=== PATIENT | female | born 2000 | race Caucasian/White ===

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

== ENCOUNTER 2018-04-09 07:26 | Emergency (ER) | payer BC ==
[2018-04-09 07:46] VITALS: BP 126/70
--- NOTE | 2018-04-09 08:06 | UC ---
UC General HPI - HPI Summary HPI Summary: Sore throat since 03/28. Was put on zpack for sore throat and showed no improvement. Did have some congestion, but not a lot. Not tested for strep. Reviewed above RN note. Started with sinus pressure and congestion and drainage , this is better, but + sore throat with swallow. Able to swallow, feels like something in back of throat. No rash. + GI upset, no melena. No urinary issues. On BCP, periods normal. + ear discomfort. Minimal cough. - History of Current Complaint Chief Complaint: UCGeneralIllness Stated Complaint: ST Time Seen by Provider: 04/09/18 08:06 Hx Obtained From: Patient Hx Last Menstrual Period: 03/17/18 Pain Intensity: 6 - Allergy/Home Medications Allergies/Adverse Reactions: Allergies Allergy/AdvReac Type Severity Reaction Status Date / Time amoxicillin Allergy Rash And Verified 04/09/18 07:41 Itching erythromycin base Allergy Rash Verified 04/09/18 07:41 Sulfa (Sulfonamide Allergy Rash Verified 04/09/18 07:41 Antibiotics) Home Medications: Home Medications Levonorgestrel-Ethin Estradiol [Kurvelo Tablet] 1 each PO DAILY 04/09/18 [ History Confirmed 04/09/18] PMH/Surg Hx/FS Hx/Imm Hx Previously Healthy: Yes - hx pcos - Surgical History Surgical History: Yes Surgery Procedure, Year, and Place: TONSILLECTOMY 2010 - Family History Known Family History: Positive: Cardiac Disease - Social History Alcohol Use: None Substance Use Type: None Smoking Status (MU): Never Smoked Tobacco Have You Smoked in the Last Year: No - Immunization History Most Recent Influenza Vaccination: unsure Vaccination Up to Date: Yes Review of Systems All Other Systems Reviewed And Are Negative: Yes Constitutional: Positive: Other - see hpi Skin: Positive: Other - see hpisee hpi Eyes: Positive: Other - see hpi ENT: Positive: Other Respiratory: Positive: Other - see hpisee hpi Cardiovascular: Positive: Other - see hpisee hpi Gastrointestinal: Positive: Other - see hpi Genitourinary: Positive: Other - see hpisee hpi Motor: Positive: Other - see hpi Neurovascular: Positive: Other Musculoskeletal: Positive: Other: - see hpi Neurological: Positive: Other - see hpi Psychological: Positive: Other - see hpi Is Patient Immunocompromised?: No Physical Exam Triage Information Reviewed: Yes Appearance: Well-Nourished - sitting up, conversing easily and appropriately. Looks tired, but nad. Vital Signs: Initial Vital Signs Temp 97.9 F 04/09/18 07:43 Pulse 77 04/09/18 07:43 Resp 16 04/09/18 07:43 BP 126/70 04/09/18 07:43 Pulse Ox 100 04/09/18 07:43 Vital Signs Reviewed: Yes Eye Exam: Normal ENT: Positive: Nasal congestion - previous nasal congestion, minimal now, Other - R TM dull, dark, rtxd (not red). L TM marroquin rtxd No tonsils Posterior pharynx - scattered redness,including + apprx 2cm x 2.5 area of redness. No airway obstruction. Non-fluctuant. Tongue not elevated. No aldo sores or exudates. No stridor. Neck exam: Normal Neck: Positive: Supple, Nontender, No Lymphadenopathy - no obvious lymphadenopathy Respiratory Exam: Normal Respiratory: Positive: Chest non-tender, Lungs clear, Normal breath sounds, No respiratory distress Cardiovascular Exam: Normal Cardiovascular: Positive: RRR, No Murmur, Pulses Normal, Brisk Capillary Refill Abdominal Exam: Normal Abdomen Description: Positive: Nontender - no cvat Bowel Sounds: Positive: Present - slight hyperactive Musculoskeletal Exam: Normal - grossly normal, gait steady Neurological Exam: Normal - grossly nonfocal Psychological Exam: Normal - conversing easily and appropriately Skin Exam: Normal - no visible or reported rash Course/Dx - Course Course Of Treatment: Reviewed coa / tx plan. Completed azithromycin last week. RST today negative. Does not know if +/- hx mononucleosis. S /sx c/w viral etiology. However, recommend blood work, see below. cbc, cmp, crp, mono. Harriet carefully considered the above. She d/w her mom via telephone. She declines blood work. Will f/u PCP. Declines work note. Questions as posed answered to the best of my ability. Encourage f/u PCP in the nexgt 1-2 days. ( today is Sunday). Seek medical attention if worse / new problems in the meantime. Drink plenty of fluids, avoid astringents. - Diagnoses Provider Diagnosis: Pharyngitis Discharge - Sign-Out/Discharge Documenting (check all that apply): Patient Departure All imaging exams completed and their final reports reviewed: No Studies - Discharge Plan Condition: Stable Disposition: HOME Patient Education Materials: Pharyngitis (ED) Referrals: Marguerite Vann NP [Primary Care Provider] - Additional Instructions: Follow up with your primary care provider in the next 1-2 days. Likely viral etiology. Seek medical attention if worse / new problems in the meantime. Drink plenty of fluids, avoid astringents. Throat lozenges as needed, per packaging instructions. Do not take more than the recommended amount on packaging. - Billing Disposition and Condition Condition: STABLE Disposition: Home
== END 2018-04-09 08:40 | disposition home or self-care (01) ==
LOC: UCCORT 07:26
DX: J02.9 Acute pharyngitis, unspecified (principal); Z88.0 Allergy status to penicillin; Z88.1 Allergy status to other antibiotic agents
CPT/HCPCS: 87651; 99211; G0463

== ENCOUNTER 2018-05-25 08:04 | Emergency (ER) | payer BC ==
[2018-05-25 08:22] VITALS: BP 125/75
--- NOTE | 2018-05-25 12:48 | UC ---
Skin Complaint HPI - HPI Summary HPI Summary: Patient has two insect bites one on her chin and one on the left hand. she states they are itchy ans the one on her hand is swollen. - History of Current Complaint Chief Complaint: UCSkin Time Seen by Provider: 05/25/18 08:16 Stated Complaint: RIGHT HAND/CHIN SKIN COMPLAINT Hx Obtained From: Patient Hx Last Menstrual Period: 04/21/18 ?: No Onset/Duration: Sudden Onset, Lasting Days Skin Exposure Onset/Duration: Minutes Ago, Days Ago Onset Severity: Mild Current Severity: Mild Pain Intensity: 3 Location: Discrete Character: Redness, Raised, Painful Aggravating Factor(s): Touch Alleviating Factor(s): Nothing Related History: Insect Bite/Sting - Allergy/Home Medications Allergies/Adverse Reactions: Allergies Allergy/AdvReac Type Severity Reaction Status Date / Time amoxicillin Allergy Rash And Verified 05/25/18 08:16 Itching erythromycin base Allergy Rash Verified 05/25/18 08:16 Sulfa (Sulfonamide Allergy Rash Verified 05/25/18 08:16 Antibiotics) Home Medications: Home Medications diphenhydrAMINE HCl [Benadryl Allergy 25 MG CAP] 25 mg PO ONCE PRN 05/25/18 [ History Confirmed 05/25/18] PMH/Surg Hx/FS Hx/Imm Hx Previously Healthy: Yes - Surgical History Surgical History: Yes Surgery Procedure, Year, and Place: TONSILLECTOMY 2010 - Family History Known Family History: Positive: Cardiac Disease - Social History Alcohol Use: None Substance Use Type: None Smoking Status (MU): Never Smoked Tobacco Have You Smoked in the Last Year: No - Immunization History Most Recent Influenza Vaccination: unsure Vaccination Up to Date: Yes Review of Systems All Other Systems Reviewed And Are Negative: Yes Constitutional: Positive: Negative Skin: Positive: Other - bites Eyes: Positive: Negative ENT: Positive: Negative Respiratory: Positive: Negative Cardiovascular: Positive: Negative Gastrointestinal: Positive: Negative Genitourinary: Positive: Negative Motor: Positive: Negative Neurovascular: Positive: Negative Musculoskeletal: Positive: Negative Neurological: Positive: Negative Psychological: Positive: Negative Is Patient Immunocompromised?: No Physical Exam Triage Information Reviewed: Yes Appearance: Well-Appearing, Well-Nourished, Pain Distress Vital Signs: Initial Vital Signs Temp 97.4 F 05/25/18 08:17 Pulse 75 05/25/18 08:17 Resp 15 05/25/18 08:17 BP 125/75 05/25/18 08:17 Pulse Ox 100 05/25/18 08:17 Vital Signs Reviewed: Yes Eye Exam: Normal ENT Exam: Normal Dental Exam: Normal Neck exam: Normal Respiratory Exam: Normal Respiratory: Positive: Chest non-tender, Lungs clear, Normal breath sounds Cardiovascular Exam: Normal Cardiovascular: Positive: RRR, No Murmur, Pulses Normal Abdominal Exam: Normal Musculoskeletal Exam: Normal Neurological Exam: Normal Psychological Exam: Normal Skin: Positive: Other - 2 bites one on chin and one on the opsteriro right hand that is swollen and raised. Course/Dx - Course Course Of Treatment: hx obtained, exam performed ,meds reviewed, skin area looks like a insect bite reaction - Differential Diagnoses - Skin Complaint Differential Diagnoses: Abscess, Cellulitis, Eczema, Urticaria - Diagnoses Provider Diagnosis: Allergic reaction to insect bite Discharge - Sign-Out/Discharge Documenting (check all that apply): Patient Departure All imaging exams completed and their final reports reviewed: No Studies - Discharge Plan Condition: Stable Disposition: HOME Patient Education Materials: Insect Bite or Sting (ED) Referrals: Marguerite Vann NP [Primary Care Provider] - Additional Instructions: 1. take the medication as prescribed. 2. soak hand in warm water 2-3 times a day to help swelling dissipate 3. Take a daily Zyrtec for the next 2 weeks - Billing Disposition and Condition Condition: STABLE Disposition: Home
== END 2018-05-25 08:37 | disposition home or self-care (01) ==
LOC: UCCORT 08:04
DX: T63.481A Toxic effect of venom of other arthropod, accidental (unintentional), initial encounter (principal); M79.89 Other specified soft tissue disorders; Y92.9 Unspecified place or not applicable; Z88.0 Allergy status to penicillin; Z88.1 Allergy status to other antibiotic agents
CPT/HCPCS: 99212; G0463

== ENCOUNTER 2018-11-02 16:53 | Emergency (ER) | payer MEDICAID, OTHER ==
[2018-11-02 18:10] VITALS: BP 117/67
[2018-11-02] MEDS ORDERED: Tetan/Diph/Pertus SYR(Tdap)* 0.5 ML SYR(BOOSTRIX) use SYR IM ONE (18:20)
[2018-11-02] MEDS ORDERED: Lidocaine 4% TOPICAL* 50 ML TOP.SOLN TOPICAL ONE (18:20)
--- NOTE | 2018-11-02 18:21 | UC ---
Lower Extremity/Ankle HPI - HPI Summary HPI Summary: Thinks she may have a splinter in bottom of left foot - History of Current Complaint Chief Complaint: UCForeignBody Stated Complaint: LEFT FOOT CONCERN ( SPLINTER) Time Seen by Provider: 11/02/18 18:16 Hx Obtained From: Patient Hx Last Menstrual Period: 10/26/18 ?: No Onset/Duration: Sudden Onset, Lasting Hours Pain Intensity: 6 Pain Scale Used: 0-10 Numeric Aggravating Factor(s): Standing, Ambulation Able to Bear Weight: Yes - Allergies/Home Medications Allergies/Adverse Reactions: Allergies Allergy/AdvReac Type Severity Reaction Status Date / Time amoxicillin Allergy Rash And Verified 11/02/18 18:10 Itching erythromycin base Allergy Rash Verified 11/02/18 18:10 Sulfa (Sulfonamide Allergy Rash Verified 11/02/18 18:10 Antibiotics) Home Medications: Home Medications NK [No Home Medications Reported] 11/02/18 [History Confirmed 11/02/18] PMH/Surg Hx/FS Hx/Imm Hx Previously Healthy: Yes - Surgical History Surgical History: Yes Surgery Procedure, Year, and Place: TONSILLECTOMY 2010 - Family History Known Family History: Positive: Cardiac Disease - Social History Occupation: Employed Full-time Lives: With Family Alcohol Use: None Substance Use Type: None Smoking Status (MU): Never Smoked Tobacco Have You Smoked in the Last Year: No - Immunization History Most Recent Influenza Vaccination: unsure Vaccination Up to Date: Yes Review of Systems All Other Systems Reviewed And Are Negative: Yes Constitutional: Positive: Negative Skin: Positive: Other - small pw bottom of left foot from sliver--- Eyes: Positive: Negative ENT: Positive: Negative Respiratory: Positive: Negative Cardiovascular: Positive: Negative Gastrointestinal: Positive: Negative Genitourinary: Positive: Negative Motor: Positive: Negative Neurovascular: Positive: Negative Musculoskeletal: Positive: Negative Neurological: Positive: Negative Psychological: Positive: Negative Is Patient Immunocompromised?: Yes Physical Exam Triage Information Reviewed: Yes Appearance: Well-Appearing, No Pain Distress, Well-Nourished Vital Signs: Initial Vital Signs Temp 98.5 F 11/02/18 18:06 Pulse 74 11/02/18 18:06 Resp 14 11/02/18 18:06 BP 117/67 11/02/18 18:06 Pulse Ox 100 11/02/18 18:06 Vital Signs Reviewed: Yes Eye Exam: Normal Eyes: Positive: Conjunctiva Clear ENT Exam: Normal ENT: Positive: Normal ENT inspection, Hearing grossly normal. Negative: Trismus , Muffled voice, Hoarse voice Dental Exam: Normal Neck exam: Normal Neck: Positive: Supple, Nontender Respiratory Exam: Normal Respiratory: Positive: Chest non-tender, No respiratory distress, No accessory muscle use Cardiovascular Exam: Normal Cardiovascular: Positive: RRR, Pulses Normal, Brisk Capillary Refill Musculoskeletal Exam: Normal Musculoskeletal: Positive: Strength Intact, ROM Intact Neurological Exam: Normal Neurological: Positive: Alert, Muscle Tone Normal Psychological Exam: Normal Skin: Positive: Other - pw bottom of left foot---no fb noted on inspection Diagnostics - Radiology No standard instances Radiology Interpretation Completed By: ED Physician - no [email or web address] noted Lower Extremity Course/Dx - Course Course Of Treatment: would was anexamined closer--small pience of debris removed---patient feels fb remains---will apply dressing up date tetanus and follow with orthopedic MD - Differential Dx/Diagnosis Provider Diagnosis: Tetanus-diphtheria vaccination administered at current visit, Foreign body in left foot Discharge - Sign-Out/Discharge Documenting (check all that apply): Patient Departure All imaging exams completed and their final reports reviewed: No - Discharge Plan Condition: Stable Disposition: HOME Patient Education Materials: Diphtheria/Pertussis/Tetanus Vaccine (By injection ), Soft Tissue Foreign Body (ED), Warm Compress or Soak (ED) Forms: *Work Release Referrals: Damion Narvaez MD [Medical Doctor] - If Needed - Billing Disposition and Condition Condition: STABLE Disposition: Home
--- NOTE | 2018-11-03 13:03 | UC ---
- Results/Orders Results/Orders: wet read correct Course/Dx - Diagnoses Provider Diagnoses: Tetanus-diphtheria vaccination administered at current visit, Foreign body in left foot Discharge - Sign-Out/Discharge Documenting (check all that apply): Post-Discharge Follow Up All imaging exams completed and their final reports reviewed: Yes - Discharge Plan Condition: Stable Disposition: HOME Patient Education Materials: Diphtheria/Pertussis/Tetanus Vaccine (By injection ), Soft Tissue Foreign Body (ED), Warm Compress or Soak (ED) Forms: *Work Release Referrals: Damion Narvaez MD [Medical Doctor] - If Needed - Billing Disposition and Condition Condition: STABLE Disposition: Home
== END 2018-11-02 19:23 | disposition home or self-care (01) ==
LOC: UCCORT 16:53
DX: S90.852A Superficial foreign body, left foot, initial encounter (principal); W45.8XXA Other foreign body or object entering through skin, initial encounter; Y92.9 Unspecified place or not applicable; Z23 Encounter for immunization
CPT/HCPCS: 90471; 90715; 99202; G0463

== ENCOUNTER 2018-12-02 11:34 | Emergency (ER) | payer OTHER ==
[2018-12-02 11:53] VITALS: BP 120/76
--- NOTE | 2018-12-02 12:09 | UC ---
Complaint Female HPI - HPI Summary HPI Summary: Pt presents with sudden onset urinary frequency, urgency and dysuria X 2 days. - History Of Current Complaint Stated Complaint: URINARY COMPLAINT Time Seen by Provider: 12/02/18 11:47 Hx Obtained From: Patient Hx Last Menstrual Period: 11/18/18 ?: No Onset/Duration: Sudden Onset, Lasting Days, Still Present Timing: Constant Severity Initially: Mild Severity Currently: Mild Pain Intensity: 0 Character: Dull, Burning Aggravating Factor(s): Urination Alleviating Factor(s): Nothing Associated Signs And Symptoms: Positive: Negative - Risk Factors Ectopic Risk Factor: Negative Ovarian Torsion Risk Factor: Reproductive Age - Allergies/Home Medications Allergies/Adverse Reactions: Allergies Allergy/AdvReac Type Severity Reaction Status Date / Time amoxicillin Allergy Rash And Verified 12/02/18 11:54 Itching erythromycin base Allergy Rash Verified 12/02/18 11:54 Sulfa (Sulfonamide Allergy Rash Verified 12/02/18 11:54 Antibiotics) Home Medications: Home Medications Metformin HCl [Glucophage Xr] 250 mg PO BID 12/02/18 [History Confirmed 12/02/18 ] Norgestimate-Eth Estradiol(NF) [Ortho Tri-Cyclen (NF)] 1 tab PO DAILY 12/02/18 [ History Confirmed 12/02/18] PMH/Surg Hx/FS Hx/Imm Hx Previously Healthy: Yes - Surgical History Surgical History: Yes Surgery Procedure, Year, and Place: TONSILLECTOMY 2010 - Family History Known Family History: Positive: Cardiac Disease - Social History Occupation: Employed Full-time Lives: With Family Alcohol Use: Occasionally Substance Use Type: None Smoking Status (MU): Never Smoked Tobacco Have You Smoked in the Last Year: No - Immunization History Most Recent Influenza Vaccination: unsure Most Recent Tetanus Shot: unknown Vaccination Up to Date: Yes Review of Systems All Other Systems Reviewed And Are Negative: Yes Constitutional: Positive: Negative Skin: Positive: Negative Eyes: Positive: Negative ENT: Positive: Negative Respiratory: Positive: Negative Cardiovascular: Positive: Negative Gastrointestinal: Positive: Negative Genitourinary: Positive: Dysuria, Frequency, Urgency Motor: Positive: Negative Neurovascular: Positive: Negative Musculoskeletal: Positive: Negative Neurological: Positive: Negative Psychological: Positive: Negative Is Patient Immunocompromised?: No Physical Exam Triage Information Reviewed: Yes Appearance: Well-Appearing Vital Signs: Initial Vital Signs Temp 98.1 F 12/02/18 11:47 Pulse 78 12/02/18 11:47 Resp 16 12/02/18 11:47 BP 120/76 12/02/18 11:47 Pulse Ox 100 12/02/18 11:47 Vital Signs Reviewed: Yes Eye Exam: Normal ENT Exam: Normal Dental Exam: Normal Neck exam: Normal Respiratory Exam: Normal Cardiovascular Exam: Normal Abdominal Exam: Normal Musculoskeletal Exam: Normal Neurological Exam: Normal Psychological Exam: Normal Skin Exam: Normal Complaint Female Dx - Differential Dx/Diagnosis Differential Diagnosis/HQI/PQRI: Urinary Tract Infection Provider Diagnosis: UTI (urinary tract infection) Discharge - Sign-Out/Discharge Documenting (check all that apply): Patient Departure All imaging exams completed and their final reports reviewed: No Studies - Discharge Plan Condition: Stable Disposition: HOME Prescriptions: Nitrofurantoin Monohyd/M-Cryst [Macrobid 100 mg Capsule] 100 mg PO Q12H #10 cap Phenazopyridine TAB* [Pyridium 100 mg TAB*] 100 mg PO Q8H #3 tab Patient Education Materials: Urinary Tract Infection in Women (ED) Referrals: Marguerite Vann NP [Primary Care Provider] - If Needed - Billing Disposition and Condition Condition: STABLE Disposition: Home
--- NOTE | 2018-12-04 07:16 | UC ---
- Progress Note Progress Note: Urine sample may have been a non clean catch If better continue antibiotic If still symptomatic see PCP Course/Dx - Diagnoses Provider Diagnoses: UTI (urinary tract infection) Discharge - Sign-Out/Discharge Documenting (check all that apply): Post-Discharge Follow Up All imaging exams completed and their final reports reviewed: No Studies - Discharge Plan Condition: Stable Disposition: HOME Prescriptions: Nitrofurantoin Monohyd/M-Cryst [Macrobid 100 mg Capsule] 100 mg PO Q12H #10 cap Phenazopyridine TAB* [Pyridium 100 mg TAB*] 100 mg PO Q8H #3 tab Patient Education Materials: Urinary Tract Infection in Women (ED) Referrals: Marguerite Vann NP [Primary Care Provider] - If Needed - Billing Disposition and Condition Condition: STABLE Disposition: Home
== END 2018-12-02 12:16 | disposition home or self-care (01) ==
LOC: UCCORT 11:34
DX: N39.0 Urinary tract infection, site not specified (principal); Z88.0 Allergy status to penicillin; Z88.1 Allergy status to other antibiotic agents; Z88.2 Allergy status to sulfonamides
CPT/HCPCS: 81003; 87086; 99212; G0463

== ENCOUNTER 2018-12-16 17:15 | Emergency (ER) | payer OTHER ==
[2018-12-16 17:56] VITALS: BP 117/74
--- NOTE | 2018-12-16 18:01 | UC ---
Back Pain HPI - HPI Summary HPI Summary: 18 yo female presents with 2 complaints: 1) For many years she has been dealing with seasonal allergies - runny nose, sneezing, and watery eyes. She has been taking claritin OTC daily for years and it had been working well until the last few months. She feels it is no longer helping her symptoms. She is interested in allergy testing and is asking for a referral for potential allergy shots today. 2) For many years she has been dealing with mid back pain that she feels is posture related. She has two jobs and is on her feet a lot - toward the end of the day she will have increased back pain that improves with massage or cracking her back. She notes that she is "hunched" over when standing, walking, or sitting and that she has a family history of scoliosis and kyphosis. She has never had imaging or brought up these concerns with her PCP. She denies specific injury. No radiation of pain, numbness, or tingling. - History of Current Complaint Chief Complaint: UCGeneralIllness Stated Complaint: UPPER BACK PAIN/SINUS ISSUE Hx Obtained From: Patient Hx Last Menstrual Period: November 27 Onset/Duration: Gradual Onset Severity Currently: None Pain Intensity: 0 - Allergies/Home Medications Allergies/Adverse Reactions: Allergies Allergy/AdvReac Type Severity Reaction Status Date / Time amoxicillin Allergy Rash And Verified 12/16/18 17:57 Itching erythromycin base Allergy Rash Verified 12/16/18 17:57 Sulfa (Sulfonamide Allergy Rash Verified 12/16/18 17:57 Antibiotics) Home Medications: Home Medications Loratadine 10 mg PO DAILY 12/16/18 [History Confirmed 12/16/18] PMH/Surg Hx/FS Hx/Imm Hx - Additional Past Medical History Additional PMH: Seasonal allergies PCOS - Surgical History Surgical History: Yes Surgery Procedure, Year, and Place: TONSILLECTOMY 2010 - Family History Known Family History: Positive: Cardiac Disease - Social History Occupation: Employed Full-time Lives: With Family Alcohol Use: None Substance Use Type: None Smoking Status (MU): Never Smoked Tobacco Have You Smoked in the Last Year: No - Immunization History Most Recent Influenza Vaccination: unsure Most Recent Tetanus Shot: unknown Vaccination Up to Date: Yes Review of Systems All Other Systems Reviewed And Are Negative: Yes Constitutional: Positive: Negative Skin: Positive: Negative Eyes: Positive: Drainage ENT: Positive: Nasal Discharge Respiratory: Positive: Negative Cardiovascular: Positive: Negative Gastrointestinal: Positive: Negative Genitourinary: Positive: Negative Neurovascular: Positive: Negative Musculoskeletal: Positive: Other: - Back pain Neurological: Positive: Negative Psychological: Positive: Negative Physical Exam - Summary Physical Exam Summary: GENERAL: NAD. WDWN. No pain distress. SKIN: No rashes, sores, or open wounds. HEENT: Head: AT/NC Eyes: PERRLA. EOM intact. Conjunctiva clear without inflammation or discharge. Ears: Hearing grossly normal. TMs intact, no bulging, erythema, or edema. Nose: Nasal mucosa pink and moist. NTTP maxillary and frontal sinus. Throat: Posterior oropharynx without exudates, erythema, or tonsillar enlargement. Uvula midline. NECK: Supple. Nontender. No lymphadenopathy. CHEST: CTAB. No r/r/w. No accessory muscle use. Breathing comfortably and in no distress. CV: RRR. Without m/r/g. Pulses intact. Brisk cap refill. MSK: FROM and 5/5 strength throughout. No edema. No vertebral tenderness C, T, or L spine. No spinal deviation appreciated. NEURO: Alert. PSYCH: Age appropriate behavior. Triage Information Reviewed: Yes Vital Signs: Initial Vital Signs Temp 99.4 F 12/16/18 17:51 Pulse 72 12/16/18 17:51 Resp 18 12/16/18 17:51 BP 117/74 12/16/18 17:51 Pulse Ox 100 12/16/18 17:51 Vital Signs: Temp Pulse Resp BP Pulse Ox 99.4 F 72 18 117/74 100 12/16/18 17:51 12/16/18 17:51 12/16/18 17:51 12/16/18 17:51 12/16/18 17:51 Vital Signs Reviewed: Yes Back Pain Course/Dx - Course Course Of Treatment: XR cervical: wet read no acute process XR thoracic: wet read no acute process XR lumbar: wet read no acute process Regarding her back pain, I suspect this is posture/overuse related and will start her with physical therapy and encourage her to f/u with her PCP for a recheck to see how she is feeling. Regarding her seasonal allergies; will have her stop claritin and start xyzal. Will also refer her to asthma and allergy for further eval. - Differential Dx/Diagnosis Provider Diagnosis: Postural low back pain, Seasonal allergies Discharge - Sign-Out/Discharge Documenting (check all that apply): Patient Departure All imaging exams completed and their final reports reviewed: No - Discharge Plan Condition: Stable Disposition: HOME Prescriptions: LevoCETirizine TAB (NF) [Xyzal TAB (NF)] 5 mg PO DAILY #30 tab Patient Education Materials: Allergies (ED), Back Pain (ED), Allergy Testing ( ED) Referrals: [facility] [Provider Group] - As Soon As Possible Marguerite Vann NP [Primary Care Provider] - 2 Weeks Additional Instructions: If you develop a fever, shortness of breath, chest pain, new or worsening symptoms - please call your PCP or go to the ED immediately. I recommend that you stop the claritin and try Xyzal for your allergies. Please call [facility] at the number below to schedule an appointment for allergy testing and further treatment. Regarding your back pain and posture, I recommend that you schedule an appointment with physical therapy to undergo core strength training to help correct your posture. Please follow up with your primary doctor in 2-3 weeks for a check in to see how you are feeling. - Billing Disposition and Condition Condition: STABLE Disposition: Home - Attestation Statements Provider Attestation: Per institutional requirements, I have reviewed the chart, however, I was not consulted specifically or made aware of this patient by the midlevel provider. I did not personally evaluate, interact with , or disposition this patient.
--- NOTE | 2018-12-17 09:54 | UC ---
- Progress Note Progress Note: Radiologist reading for C-spine and T-spine and lumbosacral spine x-rays from December 16, 2018 comes back as no fracture or subluxation. Provider interpretation of the same date is the same therefore there is no discrepancy. Course/Dx - Diagnoses Provider Diagnoses: Postural low back pain, Seasonal allergies Discharge - Sign-Out/Discharge Documenting (check all that apply): Patient Departure All imaging exams completed and their final reports reviewed: Yes - Discharge Plan Condition: Stable Disposition: HOME Prescriptions: LevoCETirizine TAB (NF) [Xyzal TAB (NF)] 5 mg PO DAILY #30 tab Patient Education Materials: Allergies (ED), Back Pain (ED), Allergy Testing ( ED) Referrals: [facility] [Provider Group] - As Soon As Possible Marguerite Vann NP [Primary Care Provider] - 2 Weeks Additional Instructions: If you develop a fever, shortness of breath, chest pain, new or worsening symptoms - please call your PCP or go to the ED immediately. I recommend that you stop the claritin and try Xyzal for your allergies. Please call [facility] at the number below to schedule an appointment for allergy testing and further treatment. Regarding your back pain and posture, I recommend that you schedule an appointment with physical therapy to undergo core strength training to help correct your posture. Please follow up with your primary doctor in 2-3 weeks for a check in to see how you are feeling. - Billing Disposition and Condition Condition: STABLE Disposition: Home
== END 2018-12-16 19:06 | disposition home or self-care (01) ==
LOC: UCCORT 17:15
DX: M54.5 Low back pain (principal); J30.2 Other seasonal allergic rhinitis
CPT/HCPCS: 72040; 72070; 72100; 81003; 84702; 87086; 99212; G0463

== ENCOUNTER 2019-02-04 16:55 | Emergency (ER) | payer OTHER ==
--- NOTE | 2019-02-04 17:33 | UC ---
Ear Complaint HPI - HPI Summary HPI Summary: 18-year-old female who has a history of allergies and she felt like her right ear was full so she put in some hydrogen peroxide in the past 24 hours and she was able to remove a lot of wax but she wanted recheck. - History of Current Complaint Stated Complaint: B/L EAR COMPLAINT Time Seen by Provider: 02/04/19 17:32 Hx Obtained From: Patient Hx Last Menstrual Period: November 27 ?: No Onset/Duration: Gradual Onset Severity Initially: Mild Severity Currently: Mild Aggravating Factors: Nothing Alleviating Factors: Nothing Related History: Seasonal Allergies - Allergies/Home Medications Allergies/Adverse Reactions: Allergies Allergy/AdvReac Type Severity Reaction Status Date / Time amoxicillin Allergy Rash And Verified 02/04/19 17:48 Itching erythromycin base Allergy Rash Verified 02/04/19 17:48 Sulfa (Sulfonamide Allergy Rash Verified 02/04/19 17:48 Antibiotics) PMH/Surg Hx/FS Hx/Imm Hx Previously Healthy: Yes - Surgical History Surgical History: Yes Surgery Procedure, Year, and Place: TONSILLECTOMY 2010 - Family History Known Family History: Positive: Cardiac Disease - Social History Alcohol Use: None Substance Use Type: None Smoking Status (MU): Never Smoked Tobacco Have You Smoked in the Last Year: No - Immunization History Most Recent Influenza Vaccination: unsure Most Recent Tetanus Shot: unknown Vaccination Up to Date: Yes Review of Systems All Other Systems Reviewed And Are Negative: Yes ENT: Positive: Ear Ache - Not necessarily ear pain but feeling like her right ear is full., Nasal Discharge Is Patient Immunocompromised?: No Physical Exam Triage Information Reviewed: Yes Appearance: Well-Appearing, No Pain Distress, Well-Nourished Vital Signs Reviewed: Yes Eyes: Positive: Conjunctiva Clear ENT: Positive: Hearing grossly normal, Pharynx normal, TMs normal, Uvula midline Neck: Positive: Supple, Nontender, No Lymphadenopathy Respiratory: Positive: Lungs clear, Normal breath sounds, No respiratory distress, No accessory muscle use Cardiovascular: Positive: RRR, No Murmur, Pulses Normal, Brisk Capillary Refill Musculoskeletal Exam: Normal Neurological Exam: Normal Psychological Exam: Normal Skin Exam: Normal Ear Complaint Course/Dx - Course Course Of Treatment: Patient is comfortable here. She only has a very small amount of cerumen in the right ear canal not occluding the ear canal. She is advised to instill earwax softening drops once a month to prevent earwax buildup. She is to follow -up with her primary care provider as needed. - Differential Dx/Diagnosis Provider Diagnosis: Otalgia of right ear Discharge ED - Sign-Out/Discharge Documenting (check all that apply): Patient Departure All imaging exams completed and their final reports reviewed: No Studies - Discharge Plan Condition: Good Disposition: HOME Patient Education Materials: Earache (ED) Referrals: Marguerite Vann NP [Primary Care Provider] - Additional Instructions: Use earwax softening drops once a month to prevent earwax from building up. Follow-up with your primary care provider as needed. - Billing Disposition and Condition Condition: GOOD Disposition: Home
[2019-02-04 17:46] VITALS: BP 112/70
== END 2019-02-04 17:54 | disposition home or self-care (01) ==
LOC: UCCORT 16:55
DX: H92.01 Otalgia, right ear (principal); Z88.0 Allergy status to penicillin; Z88.1 Allergy status to other antibiotic agents; Z88.2 Allergy status to sulfonamides
CPT/HCPCS: 99211; G0463

== ENCOUNTER 2019-06-20 08:39 | Emergency (ER) | payer OTHER ==
--- OUTSIDE RECORDS SUMMARY | 2019-06-20 08:47 | XMS REPORT | Continuity of Care Document ---
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 Problems Active Problems Provider Date Polycystic ovaries Juan Vann FNP Onset: 10/10/2017 Acne Juan Vann FNP Onset: 10/11/2017 Note: Document: 10/11/17 - Consult Dermatology Depressive disorder Juan Vann FNP Onset: 04/02/2019 Note: 2013 Social History Type Date Description Comments Sex Unknown ETOH Use Never used alcohol Tobacco Use Start: Unknown Patient has never smoked Smoking Status Reviewed: 06/10/19 Patient has never smoked Allergies, Adverse Reactions, Alerts Active Allergies Reaction Severity Comments Date Amoxicillin 12/29/2011 Sulfa Drugs 07/25/2017 Erythromycin Hives 08/16/2018 Medications Active Medications SIG Qnty Indications Ordering Provider Date Hydroxyzine HCL 1 tab by mouth 60tabs F41.9 Junior Guido MD 06/10/2019 50mg three times a Tablets day as needed Loratadine 1 by mouth every 30caps Soo, 09/11/2018 10mg day MONA Martinez Capsules Drospirenone-Ethinyl TK 1 T PO qd Unknown Estradiol 3-0.02mg Tablets Medications Administered in Office Medication SIG Qnty Indications Ordering Provider Date PPD Family Nurse 01/02/2018 Injection PPD Juan Vann FNP 09/25/2016 Injection Immunizations CPT Code Status Date Vaccine Lot # [id number] Given 06/29/2017 Influenza Virus Vaccine Quadrivalent [id number] [id number] [address] Given 03/24/2016 Influenza Virus Vaccine, Quadrivalent, 36 Mos+, [id number] .[id number] 31738 Given 09/09/2015 Meningococcal Conjugate Vaccine Serogroups For [id number] Intramuscular Use 03694 Given 01/27/2014 Meningococcal Conjugate Vaccine Serogroups For Intramuscular Use 38405 Given 01/27/2014 flu vaccination 29290 Given 03/07/2013 flu vaccination 42158 Given 03/11/2012 flu vaccination 67553 Given 02/15/2011 flu vaccination 76610 Given 07/26/2009 Tdap injection 42664 Given 05/04/2009 H1N1 Immuniation Adminstration 78549 Given 05/04/2009 H1N1 Immuniation Adminstration 56299 Given 05/04/2009 flu vaccination 74272 Given 07/30/2008 Gardasil 36368 Given 02/25/2008 Gardasil 28285 Given 12/25/2007 Gardasil 90174 Given 12/25/2007 Hepatitis A Vaccine Pediatric/Adolescent Dosage 2 Dose Schedule 88987 Given 12/18/2006 Varicella (Chicken Pox) Vaccine 14392 Given 12/18/2006 Hepatitis A Vaccine Pediatric/Adolescent Dosage 2 Dose Schedule 58633 Given 12/22/2003 DTaP Vaccine Younger Than 7 59097 Given 12/22/2003 MMR Vaccine, Live, For Subcutaneous Use 93653 Given 12/22/2003 Poliovirus Vaccine Subcutaneous Or Intramuscular 19213 Given 12/22/2003 Varicella (Chicken Pox) Vaccine 46591 Given 09/07/2000 MMR Vaccine, Live, For Subcutaneous Use 10762 Given 03/02/2000 DTaP Vaccine Younger Than 7 47285 Given 03/02/2000 Hib PRP-T Conjugate 4 Dose Schedule 98657 Given 1998 Hib PRP-T Conjugate 4 Dose Schedule 82529 Given 1998 DTaP Vaccine Younger Than 7 52755 Given 1998 Poliovirus Vaccine Subcutaneous Or Intramuscular 47209 Given 1998 Hepatitis B Vaccine Pediatric/Adolescent 74685 Given 1998 Poliovirus Vaccine Subcutaneous Or Intramuscular 34888 Given 1998 DTaP Vaccine Younger Than 7 50028 Given 1998 Hib PRP-T Conjugate 4 Dose Schedule 66109 Given 1998 Poliovirus Vaccine Subcutaneous Or Intramuscular 19281 Given 1998 DTaP Vaccine Younger Than 7 61378 Given 1998 Hib PRP-T Conjugate 4 Dose Schedule 37412 Given 1998 Hepatitis B Vaccine Pediatric/Adolescent 24386 Given 1998 Hepatitis B Vaccine Pediatric/Adolescent Vital Signs Date Vital Result Comment 06/10/2019 1:55pm BP Systolic 121 mmHg BP Diastolic 84 mmHg Body Temperature 97.6 F Heart Rate 73 /min Respiratory Rate 18 /min Height 66 inches 5'6" Weight 155.00 lb BMI (Body Mass Index) 25.0 kg/m2 BSA (Body Surface Area) 1.79 m2 [place] body weight in kilograms 59 kg O2 % BldC Oximetry 97 % Ra 08/16/2018 3:30pm BP Systolic 118 mmHg BP Diastolic 72 mmHg Body Temperature 98.2 F Heart Rate 74 /min Respiratory Rate 18 /min Height 66 inches 5'6" Weight 147.12 lb BMI (Body Mass Index) 23.7 kg/m2 BSA (Body Surface Area) 1.76 m2 [place] body weight in kilograms 59 kg O2 % BldC Oximetry 98 % Ra Results Test Acquired Facility Test Result H/L Range Note Date Laboratory test 12/16/2018 [facility] Poc Negative Negative 1 finding [phone] , Urine Urine Culture And 12/16/2018 [facility] Urine SEE RESULT 2, 3 Sensitivities [phone] Culture BELOW Poc Urinalysis 12/16/2018 [facility] Poc Negative Negative [phone] Glucose, Urine Poc Bilirubin, Urine Negative Negative Poc Ketone, Urine Negative Negative Poc Specific [place], Urine 1.010 Normal 1.010-1.030 Poc Blood, Urine Negative Negative Poc pH, Urine 5.5 Normal 5-9 Poc Protein, Urine Negative Negative Poc Urobilinogen, Urine 0.2 Negative Poc Nitrite, Urine Negative Negative Poc Leukocytes, Urine Trace Abnormal Negative Poc Color, Urine Yellow Poc Clarity, Urine Clear 4 1 Coloring Room Man: [id number] Test Disclaimer: Positive bacteria, red blood cells, white blood cells, early , low specific gravity, and other factors may cause false positive or negative results. It is recommended to retest unexpected and borderline results with a serum test when applicable. If is still suspected, please repeat test after 48 to 72 hours. 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 END OF REPORT DEPARTMENT OF PATHOLOGY, [address] [place] [address] Noe Dixon M.D. Director [facility] # [id number] 4 Coloring Room Man: [id number] Procedures Description No Information Available Medical Devices Description No Information Available Encounters Type Date Location Provider Dx Diagnosis Office Visit 06/10/2019 [facility] Junior Guido MD F41.9 Anxiety disorder, 1:50p [facility] unspecified Assessments Date Code Description Provider 06/10/2019 F41.9 Anxiety disorder, unspecified Junior Guido MD Plan of Treatment Future Appointment(s):07/09/2019 7:45 am - Juan Vann FNP at [facility]06/10/2019 - Junior Guido MDF41.9 Anxiety disorder, unspecifiedNew Medication:Hydroxyzine HCL 50 mg - 1 tab by mouth three times a day as needed Functional Status Functional Condition Comment Date Status Glasses Active Mental Status Description No Information Available Referrals Description No Information Available
[2019-06-20 09:03] VITALS: BP 125/80
--- NOTE | 2019-06-20 09:38 | UC ---
Complaint Female HPI - HPI Summary HPI Summary: Here with 2 concerns: --thinks that she might have some retained fragments of tampon due to vaginal itching. No odor. No abdominal pain or urinary symptoms. Sexually active with one partner and does not want testing for Chlamydia or GC. --she has had sore throat for a week, off and on, without headache, cough, chills. Yesterday she had a temp to 100.7 and felt dizzy and pre-syncopal with a hx of fainting in the past secondary to dehydration. She requests flu testing. She forgets to stay hydrated. - History Of Current Complaint Chief Complaint: UCGU Stated Complaint: PERSONAL Time Seen by Provider: 06/20/19 09:29 Hx Obtained From: Patient Hx Last Menstrual Period: 06/13/19 Onset/Duration: Sudden Onset Timing: Constant Severity Initially: Mild Severity Currently: Mild Pain Intensity: 4 Aggravating Factor(s): Nothing - --aware steadily of vaginal irritation. Alleviating Factor(s): Nothing Associated Signs And Symptoms: Positive: Fever, Vaginal Discharge, Nausea. Negative: Back Pain - Risk Factors Ectopic Risk Factor: Negative Ovarian Torsion Risk Factor: Negative - Allergies/Home Medications Allergies/Adverse Reactions: Allergies Allergy/AdvReac Type Severity Reaction Status Date / Time amoxicillin Allergy Rash And Verified 06/20/19 09:04 Itching erythromycin base Allergy Rash Verified 06/20/19 09:04 Sulfa (Sulfonamide Allergy Rash Verified 06/20/19 09:04 Antibiotics) environmental Allergy Congestion Uncoded 06/20/19 09:05 Home Medications: Home Medications Albuterol HFA INHALER* [Ventolin HFA Inhaler*] 2 puff INH DAILY PRN 06/20/19 [ History Confirmed 06/20/19] Allergy Injection 1 dose SUBCUT WEEKLY 06/20/19 [History Confirmed 06/20/19] PMH/Surg Hx/FS Hx/Imm Hx Previously Healthy: Yes - Surgical History Surgical History: Yes Surgery Procedure, Year, and Place: TONSILLECTOMY 2010 - Family History Known Family History: Positive: Cardiac Disease - Social History Occupation: Employed Full-time Lives: With Family Alcohol Use: Rare Substance Use Type: None Smoking Status (MU): Never Smoked Tobacco Have You Smoked in the Last Year: No - Immunization History Most Recent Influenza Vaccination: unsure Most Recent Tetanus Shot: unknown Vaccination Up to Date: Yes Review of Systems All Other Systems Reviewed And Are Negative: Yes Constitutional: Positive: Fever, Fatigue Skin: Positive: Negative Eyes: Positive: Negative ENT: Positive: Sore Throat Respiratory: Positive: Negative Cardiovascular: Positive: Negative Gastrointestinal: Positive: Nausea Genitourinary: Negative: Dysuria, Frequency, Urgency Motor: Positive: Negative Neurovascular: Positive: Negative Musculoskeletal: Positive: Negative Neurological: Negative: Headache Psychological: Positive: Negative Is Patient Immunocompromised?: No Physical Exam Triage Information Reviewed: Yes Appearance: Well-Appearing, No Pain Distress Vital Signs: Initial Vital Signs Temp 98.4 F 06/20/19 08:49 Pulse 88 06/20/19 08:49 Resp 18 06/20/19 08:49 BP 125/80 06/20/19 08:49 Pulse Ox 99 06/20/19 08:49 Vital Signs Reviewed: Yes ENT: Positive: Pharynx normal, TMs normal Neck: Positive: Supple, Nontender, No Lymphadenopathy Respiratory: Positive: Lungs clear, Normal breath sounds, No respiratory distress Cardiovascular: Positive: RRR, No Murmur Abdomen Description: Positive: Nontender, No Organomegaly, Soft Pelvic Exam: Positive: External Exam Normal, No Cerv. Motion Tender, Discharge - copious amounts of clumps of discharge. Careful exam of the vaginal vault did not show any retrained tampon, but as much discharge as possible was removed using large swabs.. Negative: Cervicitis Musculoskeletal Exam: Normal Neurological Exam: Normal Psychological Exam: Normal Skin Exam: Normal Diagnostics - Laboratory Lab Results: rapid flu negative Complaint Female Dx - Course Course Of Treatment: fluconazole for yeast vaginitis, with 5 day course given due to severity of symptoms. - Differential Dx/Diagnosis Differential Diagnosis/HQI/PQRI: Cervicitis, Retained Foreign Body, Other - yeast vaginitis Provider Diagnosis: Vaginitis Discharge ED - Sign-Out/Discharge Documenting (check all that apply): Patient Departure All imaging exams completed and their final reports reviewed: No Studies - Discharge Plan Condition: Stable Disposition: HOME Prescriptions: Fluconazole 100 MG TAB* [Diflucan 100 MG TAB*] 100 mg PO DAILY #5 tab Patient Education Materials: Vaginitis (ED) Referrals: Marguerite Vann NP [Primary Care Provider] - Additional Instructions: Your symptoms and findings are most consistent with yeast vaginitis. A culture has been sent to ensure that there is not bacterial infection present as well. The results of this will take 2 to 3 days, and you will be called if additional antibiotic is needed. Flu testing is negative today, and there were no findings to suggest a bacterial illness. - Billing Disposition and Condition Condition: STABLE Disposition: Home
[2019-06-20 10:03] LABS: Influenza A Molecular Negative (Negative); Influenza B Molecular Negative (Negative)
--- NOTE | 2019-06-22 07:23 | UC ---
- Progress Note Progress Note: Please notify patient she tested positive for [place]. Recommend treating with metronidazole 500mg q12 hours x 7 days. This has been ordered and sent to the pharmacy. She should not have alcohol 24 hours before, after or while taking metronidazole. Course/Dx - Diagnoses Provider Diagnoses: Vaginitis Discharge ED - Sign-Out/Discharge Documenting (check all that apply): Post-Discharge Follow Up All imaging exams completed and their final reports reviewed: No Studies - Discharge Plan Condition: Stable Disposition: HOME Prescriptions: Fluconazole 100 MG TAB* [Diflucan 100 MG TAB*] 100 mg PO DAILY #5 tab metroNIDAZOLE * [Flagyl] 500 mg PO Q12H 7 Days #14 tablet Patient Education Materials: Vaginitis (ED) Referrals: Marguerite Vann NP [Primary Care Provider] - Additional Instructions: Your symptoms and findings are most consistent with yeast vaginitis. A culture has been sent to ensure that there is not bacterial infection present as well. The results of this will take 2 to 3 days, and you will be called if additional antibiotic is needed. Flu testing is negative today, and there were no findings to suggest a bacterial illness. - Billing Disposition and Condition Condition: STABLE Disposition: Home
== END 2019-06-20 10:08 | disposition home or self-care (01) ==
LOC: UCCORT 08:39
DX: N76.0 Acute vaginitis (principal); J02.9 Acute pharyngitis, unspecified; R53.83 Other fatigue; R11.0 Nausea; Z91.09 Other allergy status, other than to drugs and biological substances; Z88.0 Allergy status to penicillin; Z88.1 Allergy status to other antibiotic agents; Z88.2 Allergy status to sulfonamides
CPT/HCPCS: 87070; 87077; 87480; 87510; 87660; 99212; G0463

== ENCOUNTER 2019-08-30 15:50 | Emergency (ER) | payer OTHER ==
[2019-08-30 16:18] VITALS: BP 122/68
--- NOTE | 2019-08-30 16:49 | UC ---
Complaint Female HPI - HPI Summary HPI Summary: 19yo female presenting with "possibly being ." Patient states that before coming in, she took a home test and "could not tell if it was positive or not." Patient states that she was taking an OCP for 2 years but had to stop taking it this past May and June since she lost her insurance. States her menstrual cycle continued to be normal and her last period was the last week of June. She states she started her pill again at the beginning of July, which caused her breasts to become tender. Patient states that tender breasts are a "normal symptom when first starting a new pack of pills" and that the symptoms go away by the end of the cycle. Patient states that tenderness in her breasts have not subsided and she now has intermittent nausea with eating and increased fatigue. States she did not begin another pack because she was not sure if the pills are causing her symptoms. Denies vomiting and abdominal pain. Denies any urinary symptoms, abnormal discharge, or vaginal bleeding. Notes only one sexual partner and denies concern for STIs - History Of Current Complaint Chief Complaint: UCGeneralIllness Stated Complaint: PERSONAL Hx Obtained From: Patient Hx Last Menstrual Period: 06/13/19 Pain Intensity: 0 Related Hx: - 0, Para - 0, Ectopic - 0 - Allergies/Home Medications Allergies/Adverse Reactions: Allergies Allergy/AdvReac Type Severity Reaction Status Date / Time amoxicillin Allergy Rash And Verified 08/30/19 16:09 Itching erythromycin base Allergy Rash Verified 08/30/19 16:09 Sulfa (Sulfonamide Allergy Rash Verified 08/30/19 16:09 Antibiotics) environmental Allergy Congestion Uncoded 08/30/19 16:09 Home Medications: Home Medications NK [No Home Medications Reported] 08/30/19 [History Confirmed 08/30/19] PMH/Surg Hx/FS Hx/Imm Hx Previously Healthy: Yes - Surgical History Surgical History: Yes Surgery Procedure, Year, and Place: TONSILLECTOMY 2010 - Family History Known Family History: Positive: Cardiac Disease - Social History Alcohol Use: Occasionally Substance Use Type: None Smoking Status (MU): Never Smoked Tobacco Have You Smoked in the Last Year: No - Immunization History Most Recent Influenza Vaccination: unsure Most Recent Tetanus Shot: unknown Vaccination Up to Date: Yes Review of Systems All Other Systems Reviewed And Are Negative: Yes Constitutional: Positive: Negative Skin: Positive: Negative Respiratory: Positive: Negative Cardiovascular: Positive: Negative Gastrointestinal: Positive: Nausea - intermittently with eating. Negative: Abdominal Pain, Vomiting, Diarrhea Genitourinary: Positive: Negative Musculoskeletal: Positive: Negative Neurological/Mental Status: Positive: Negative Physical Exam - Summary Physical Exam Summary: Vital Signs Reviewed: Yes A+Ox3, no distress, well-appearing Eyes: Conjunctiva Clear ENT: Hearing grossly normal Neck: Positive: Supple Respiratory: Positive: No respiratory distress, No accessory muscle use + CTA throughout no w/r Cardiovascular: RRR nl s1, s2 no m/r Abd: soft + BS nt/nd no guarding Musculoskeletal Exam: ROMERO x 4 without difficulty Neurological: Positive: Alert Psychological: Positive: age appropriate behavior Skin: Positive: no rash, no ecchymosis Vital Signs: Initial Vital Signs Temp 97.7 F 08/30/19 16:18 Pulse 71 08/30/19 16:18 Resp 16 08/30/19 16:18 BP 122/68 08/30/19 16:18 Pulse Ox 100 08/30/19 16:18 Lab Results 08/30/19 Range/Units 16:15 POC Ur Test Positive A (Negative) Complaint Female Dx - Course Course Of Treatment: Positive urine test. Patient asked what her options were, as she is unsure what her decision will be at this time. I provided the patient with information for counseling at the [facility] if desired. I then instructed her to either follow up with her OBGYN, Dr. Peres, or with [facility] in [place] if she plans to terminate. Patient voiced understanding. - Differential Dx/Diagnosis Provider Diagnosis: Positive urine test Discharge ED - Sign-Out/Discharge Documenting (check all that apply): Patient Departure All imaging exams completed and their final reports reviewed: No Studies - Discharge Plan Condition: Stable Disposition: HOME Patient Education Materials: (ED) Referrals: Marguerite Vann NP [Primary Care Provider] - [facility] [Outside] [facility] [Outside] Additional Instructions: Your test was positive today. The [facility] listed below offers counseling services. You may contact your OBGYN or, if needed, the information for [facility] in [place] is also listed below. - Billing Disposition and Condition Condition: STABLE Disposition: Home
== END 2019-08-30 16:55 | disposition home or self-care (01) ==
LOC: UCCORT 15:50
DX: Z32.01 Encounter for pregnancy test, result positive (principal); Z88.1 Allergy status to other antibiotic agents; Z88.0 Allergy status to penicillin; Z88.2 Allergy status to sulfonamides; Z91.09 Other allergy status, other than to drugs and biological substances
CPT/HCPCS: 84702; 99211; G0463